=== PATIENT | male | born 1950 | race Two or more races ===

== ENCOUNTER 2023-03-05 10:49 | Emergency (ER) | payer MEDICARE, OTHER ==
[~2023-03-05] VITALS: Ht 170.2 cm; Wt 73.9 kg
--- NOTE | 2023-03-05 11:00 | NUR ---
BIB [facility] 881 CC BACK PAIN 09/06, STARTED A MONTH AGO AFTER A FALL CONSULTDE AND WAS GIVEN TYLENOL AND IBUPROFEN BUT TO NO AVAIL PTC, PAIN PROGRESS WITH LIMITATION OF MOVEMENT. AOX4 NOT IN CR DISTRESS PUT ON MONITOR AND PULSE. NURSING CARE ATTENDED
--- NOTE | 2023-03-05 11:10 | NUR ---
DR MADDEN AT BEDSIDE FOR EVAL. AWAITING FOR ORDERS
[2023-03-05] MEDS ORDERED: KETOROLAC TROMETHAMINE INJ 60 MG/2 ML VIAL IM ONE ×2 (11:15→11:30)
[2023-03-05] MEDS ORDERED: CYCLOBENZAPRINE 10 MG TABLET ONE (11:15)
--- NOTE | 2023-03-05 11:20 | NUR ---
GENERAL MILLING SUPERINTENDENT AT BEDSIDE
[2023-03-05] MEDS ORDERED: CYCLOBENZAPRINE 10 MG TABLET PO ONE (11:30)
[2023-03-05] MEDS ORDERED: LIDO30AD10 TP (12:28)
[2023-03-05] MEDS ORDERED: CYCL5TAB PO (12:28)
--- NOTE | 2023-03-05 12:50 | NUR ---
Patient discharged to home in stable condition. Written and verbal after care instructions given. Patient verbalizes understanding of instruction.
[2023-03-05 13:00] VITALS: BP 145/89
== END 2023-03-05 12:50 | disposition home or self-care (01) ==
LOC: ER 11:07
DX: M54.50 Low back pain, unspecified (principal); Z60.2 Problems related to living alone
CPT/HCPCS: 99283; 96372; 72110; J1885